=== PATIENT | female | born 1955 | race Caucasian/White ===

== ENCOUNTER 2024-05-09 09:08 | Outpatient (REF) | payer MEDICARE, SELFPAY ==
--- NOTE | ~2024-05-09 | MM_ITS ---
EXAMINATION: MM SCREENING DIGITAL BREAST TOMOSYNTHESIS, BILATERAL CLINICAL INFORMATION: Screening. Asymptomatic. COMPARISON: Mammography: This study is compared with prior exams dating back to 2020. TECHNIQUE: Digital breast tomosynthesis is performed in both the craniocaudal and mediolateral oblique views along with computer-aided detection (CAD). Synthesized 2D images are generated from the tomosynthesis. FINDINGS: There are scattered areas of fibroglandular density (ACR BI-RADS breast composition Category b). There are no significant masses, abnormal calcifications, or other abnormalities. MM/MM tomosynthesis screening BI IMPRESSION: No mammographic evidence of malignancy. Please note that this study is being dictated after issues from new reporting software migration were resolved. ASSESSMENT: BI-RADS BI-RADS 1 - Negative RECOMMENDATION: Routine annual mammography screening. 1 year F/U This examination should not preclude the clinical evaluation of a suspicious palpable abnormality. This patient's information was entered into a reminder system with a target due date for their next mammogram. Electronically signed by: Arely Forbes MD 06/09/2024 09:24 AM EDT
== END 2024-05-09 09:09 | disposition home or self-care (01) ==
LOC: HO.MAMMO 09:08
PROVIDERS: PCP Student in an Organized Health Care Education/Training Program; Visit Provider Student in an Organized Health Care Education/Training Program
DX: Z12.31 Encounter for screening mammogram for malignant neoplasm of breast (principal)
CPT/HCPCS: 77063; 77067

== ENCOUNTER → 2024-05-09 09:15 | Outpatient (BNV) | payer MEDICARE, SELFPAY | PROVIDERS: PCP Student in an Organized Health Care Education/Training Program; Visit Provider Radiology Diagnostic Radiology | DX: Z12.31 Encounter for screening mammogram for malignant neoplasm of breast (principal) | CPT/HCPCS: 77063; 77067 ==

== ENCOUNTER 2025-05-15 09:05 | Outpatient (REF) | payer MEDICARE, SELFPAY ==
--- NOTE | ~2025-05-15 | MM_ITS ---
EXAMINATION: MM SCREENING DIGITAL BREAST TOMOSYNTHESIS, BILATERAL CLINICAL INFORMATION: Screening. Asymptomatic. COMPARISON: Mammography: Comparison is made with available priors TECHNIQUE: Digital breast mammography with tomosynthesis is performed in both the craniocaudal and mediolateral oblique views along with computer-aided detection (CAD). FINDINGS: There are scattered areas of fibroglandular density (ACR BI-RADS breast composition Category b). There are no significant masses, abnormal calcifications, or other abnormalities. MM/MM tomosynthesis screening BI IMPRESSION: No mammographic evidence of malignancy. ASSESSMENT: BI-RADS BI-RADS 1 - Negative RECOMMENDATION: Routine annual mammography screening. 1 year F/U This examination should not preclude the clinical evaluation of a suspicious palpable abnormality. This patient's information was entered into a reminder system with a target due date for their next mammogram. Electronically signed by: Payton Goodman DO 05/19/2025 01:41 PM EDT
--- OUTSIDE RECORDS SUMMARY | 2025-05-15 09:16 | XMS_ITS | Clinical Summary ---
Author Organization [facility] Address [address] [facility] [address] [place] [id number] Phone Care Team Providers Care Db2 Developer Name Role Phone Susana Glover LEATHER SORTER Unavailable [phone] Sofya Mcgarry Primary Care Provider Allergies Active Allergy Reactions Criticality Noted Date Comments Aspirin Anaphylaxis,Hives High 01/30/2018 Codeine Sulfate Anaphylaxis,Hives High 01/30/2018 Propoxyphene N-Acetaminophen Anaphylaxis,Hives High 01/30/2018 Levofloxacin Other (See Comments) 01/30/2018 Pre-Syncope Morphine Sulfate Anaphylaxis,Hives High 01/30/2018 Nystatin Anaphylaxis,Hives High 01/30/2018 Other Anaphylaxis,Hives High 01/30/2018 Bees Penicillins Anaphylaxis,Hives High 01/30/2018 Oxycodone-Acetaminophen Hives,Nausea and /or Vomiting 01/30/2018 Sulfa (Sulfonamide Antibiotics) Anaphylaxis,Hives High 01/30/2018 Azithromycin Unknown 01/30/2018 Medications acetaminophen (TYLENOL) 500 MG tablet Take 1 tablet by mouth as needed. Active albuterol 90 mcg/actuation inhaler TAKE 2 PUFFS BY MOUTH EVERY 6 HOURS NEEDED FOR WHEEZE 8.5 Inhaler 0 Active metroNIDAZOLE (ROSADAN) 0.75 % gel APPLY TOPICALLY TWICE A DAY TO THE FACE 45 g 4 3 Active azelaic acid (AZELEX) 20 % creamIndicatio ns:Rosacea Apply topically 2 (two) times a day. After skin is thoroughly washed and patted dry, gently but thoroughly massage a thin film of azelaic acid cream into the affected area twice daily, in the morning and evening. 50 g 4 Active Additional Information Patient not taking.Reported on 03/03/2025 EPINEPHrine 0.3 mg/0.3 mL auto-injectorI ndications:Sci atica of right side Inject 0.3 mL (0.3 mg total) into the muscle once as needed for anaphylaxis. as directed Intramuscular PRN 1 each 3 5 Active Active Problems Problem Noted Date Diagnosed Date Encounter for annual wellnes s visit (AWV) in Medicare patient 03/03/2025 Assessment & Plan (03/03/2025 8:47 AM EDT): This is a 69 y.o. female who presents for a complete physical exam. Past medical history, surgical history, social history, family history and allergies reviewed and document in chart. -Blood pressure taken and reviewed. -General health screening appropriate for age reviewed -General nutrition recommendations reviewed: 5 servings of fruits and vegetables, adequate protein. -Exercise recommendations reviewed: 150 minutes of cardiovascular exercise weekly. At least two strength training sessions weekly for muscle mass and bone health. -Breast cancer screening discussed: Last mammogram: 05/2024. Result: BIRADS 1. Any abnormal hx: no. Due in fall 2024. -Colon cancer screening discussed:Last colonoscopy: Years ago. Last Cologuard 2022. Result: negative. Any abnormal hx: no. Due in 2025. -Cervical cancer screening discussed: Always normal paps. S/p KURT 20 years ago. No further screening. -Smoking cessation: NA- quit in 1979. -Lung Cancer Screening: NA -Abdominal Aortic Aneurysm: NA -Osteoporosis screening discussed: Has never had. Schedule for June 2025. -Prediabetes and Type 2 Diabetes Screenin.5% -Hyperlipidemia screening: Very high LDL, good HDL. -Cardiovascular disease prevention (statin): ASCVD score: 7.5% -STI screening: Declines. -One lifetime HIV and Hep C test: Negative. -IPV screen: NA -PHQ2: 0, GAD7: 0 -ADLS: No limitations -Immunizations reviewed: Due for RSV, COVID. Will consider. -Labs as ordered -Regular vision and dental exams recommended: UTD -Calcium with Vitamin D recommendations reviewed: 800 international units of vitamin D daily and 1200 mg elemental calcium in post menopausal women -Living will/MOLST/HCP: Paperwork provided. HCP is daughter Bailey. -Annual physical exam recommended Pure hypercholesterolemia 03/03/2025 Assessment & Plan (03/03/2025 9:06 AM EDT): Elevated ASCVD at 7.5%. Very high LDL. Will work on lifestyle changes and repeat in 6 months. 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 Trigger finger, right ring finger 03/19/2023 Overview (09/12/2024): Injected x 2 with only partial improvement. Uses marijuana cream that has made a big difference. Assessment & Plan (09/13/2023 1:39 PM EST): Trigger finger. Injected 02/2023 with only partial improvement and now sxs worse again. Repeat injection today. Discussed if no sustained improvement, next step probably should be referral to Hand Surgery. Procedure: Pt consent, sterile prep, spray anesthetic. 20 my Kenalog + 0.5 cc 1% xylocaine injected folexor tendon. Tolerated well. I had her take off her ring. Rest joint 24 hrs. Assessment & Plan (04/26/2023 10:08 AM EDT): Significantly improved but not completely resolved since 02/2023 injection; a bit premature to repeat injection today but can do so in future if needed. Additionally option for custom splinting discussed; patient declined today but is aware this tx is sometimes effective as well. Assessment & Plan (03/19/2023 12:45 PM EDT): Steroid injection today as detailed in procedure note Rosacea 12/12/2022 Overview (09/12/2024): Uses metrogel without much effect. Will try azelaic acid. Mild intermittent asthma without complication Overview (09/12/2024): Triggered by allergies. Uses albuterol inhaler very rarely. Sciatica of right side 01/30/2018 Overview (03/03/2025): Original injury shoveling snow. Chiropractor made worse. Completed PT. MRI showed 3 herniated discs. Has never had injections. Now intermittent flares though a constant dull pain otherwise. Assessment & Plan (03/03/2025 8:21 AM EDT): Not interested in injections or surgery at this time. Seasonal allergies 01/30/2018 Overview (09/12/2024): Uses benadryl and Zyrtec as needed. Resolved Problems Problem Noted Date Diagnosed Date Resolved Date Hand pain, right 09/13/2023 09/12/2024 Assessment & Plan (09/13/2023 1:42 PM EST): Today subtle swelling, possible synovitis espec at 3d MCP joiint. Hx of elevated CCP on one occasion, but neg RF and CCP on repeat 6 mo ago. Will obtain x ray to serve as :baseline. Discussed if increasing sxs will need re-evaluation, repeat labs. Muscle spasm 04/26/2023 09/12/2024 Assessment & Plan (04/26/2023 10:09 AM EDT): Bl hands > feet; baseline Mg with next routine lab draw. Advised trial of tonic water with quinine for symptomatic benefit. Further mgmt deferred to PCP given absence of underlying inflammatory arthritis. Positive anti-CCP test 03/19/202309/12 Overview (03/19/2023): Labs 2018 RF neg anti-CCP 23.8 Assessment & Plan (04/26/2023 10:07 AM EDT): Repeat anti-CCP negative (02/2023); no specific objective evidence of rheumatoid arthritis Assessment & Plan (03/19/2023 12:47 PM EDT): No clear synovitis or joint effusion amenable to diagnostic arthrocentesis on exam today. Noted absence of profound AM stiffness. Unclear clinical significance of historic borderline elevation of anti-CCP but will repeat rheumatoid arthritis serologies and obtain updated routine labs / inflammatory markers. Unable to confirm underlying inflammatory arthritis based on data available today; will follow response to trigger finger injection given today closely and may proceed with dedicated plain films pending lab findings. High clinical likelihood of non-inflammatory component / L > R knee OA. Patient declined rx for anti-inflammatory today. Arthralgia of both elbows 01/30/2018 Arthritis of carpometacarpal (CMC) joint of right thumb 01/30/2018 09/12/2024 Assessment & Plan (04/26/2023 10:08 AM EDT): Can be tx'd with intra-articular steroid injection in future if needed Low back pain 01/30/2018 09/12/2024 Disorder of skin or subcutaneous tissue 01/30/2018 09/12/2024 Vertigo 01/30/2018 09/12/2024 Encounters Date Type Department Care Team Description 03/03/2025 8:15 AM EDT Office Visit [facility] [address] [place] [address] Sofya Mcgarry Encounter for annual wellness visit (AWV) in Medicare patient; Sciatica of right side; Pure hypercholesterolemia ; History of anaphylaxis 02/24/2025 8:17 AM EDT - 02/24/2025 11:59 PM EDT Hospital Encounter [facility] Laboratory [address] [facility] [place] [address] Sofya Mcgarry Discharge Disposition: Home or Self Care from Last 3 Months Immunizations Immunization Administration Dates Next Due COVID-19 (Pre-07/16) Pfizer Vaccine, mRNA, PF 10/26/2020,10/05/2020 INFLUENZA, SPLIT VIRUS, TRIVALENT PF 07/15/2024 INFLUENZA, SPLIT VIRUS, TRIV ALENT W/ PRESERVATIVE IM 06/13/2021,07/12/2016,07/07/2015,2009 Influenza High-Dose Trivalen t Preservative Free IM 06/17/2019 Influenza Quadrivalent Adjuv anted Preservative Free IM 06/15/2023 Influenza Quadrivalent MDCK Preservative Free IM 07/03/2017 Influenza Quadrivalent Prese rvative Free IM 06/28/2022,06/26/2018 Influenza trivalent preserva tive free intradermal 08/01/2013 Influenza, Unspecified Formulation 07/03/2017 Pneumococcal conjugate PCV13 10/31/2017 Pneumococcal conjugate PCV20 09/12/2024 Td (adult),2 Lf Tetanus Toxo id, PF, Adsorbed 05/26/2020 Tdap 10/03/2006 Zoster live 07/03/2017 Zoster recombinant 05/26/2020,07/25/2019 Family History Medical History Relation Comments Elevated PSA Brother Tinnitus Brother Vertigo Brother No Known Problems Daughter 1 Fibromyalgia Daughter 2 Lung cancer Father Smoker Rheumatoid arthritis Maternal Aunt Breast cancer Mother Carotid stenosis Mother Stroke Mother x3- first in 40s Allergies Sister Most medications Clotting disorder Sister cardiac arrest as a result Hypertension Sister Obesity Sister No Known Problems Son 1 No Known Problems Son 2 Relation Status Comments Brother Alive Daughter 1 Alive Daughter 2 Alive Father Maternal Aunt Alive Maternal Grandfather Maternal Grandmother Mother (Age 91) Paternal Grandfather Paternal Grandmother Sister Alive Son 1 Alive Son 2 Alive Social History Tobacco Use Types Packs/Day Years Used Date Smoking Tobacco: Former Cigarettes 3 11 0 06/04/1969 - 06/03/1980 Smokeless Tobacco: Never Tobacco Cessation:Counseling Given: Not Answered Alcohol Use Standard Drinks/Week Comments No 0 (1 standard drink = 0.6 oz pur e alcohol) Child or Family Care Answer Date Record ed Do you have problems with on e of the following making it difficult for you to work, study, or receive health care? No 03/03/2025 Education Answer Date Recorded Are you interested in more education? Not on bekah e 12/12/2024 Are you concerned about learning? Not on file 12/12/2024 No 12/12/2024 No 12/12/2024 Food Answer Date Recorded Within the past 6 months we worried whether our food would run out before we got money to buy more. Never True 03/03/2025 Within the past 6 months the food we bought just didn't last and we didn't have enough money to get more. Never True Residential Stability Answer Date Recor ded What is your housing situation today? I have oj goldsmith 03/03/2025 How many times have you move d in the past 12 months? Zero (I did not move) 03/03/2025 Paying for Meds Answer Date Recorded Do you have trouble paying for medicines? No 03/03/2025 Paying Utility Bills Answer Date Record ed Do you have trouble paying your heating or elect ricity bill? No 03/03/2025 Transportation Answer Date Recorded Has the lack of transportati on kept you from medical appointments or from getting medications? No 03/03/2025 Unemployment Answer Date Recorded Are you currently unemployed or working on a part-time or temporary basis, and looking for work? No 12/12/2022 Digital Access Answer Date Recorded No 03/03/2025 Yes 03/03/2025 Do you have reliable internet access at home? Ye s 03/03/2025 Do you have a device (e.g., phone, tablet, computer) with a working camera? Yes 03/03/2025 Intimate Partner Violence Answer Date R ecorded Denied Basic Needs Not on file 09/10/2024 In the past 12 months have y ou been in a relationship with a person who hurts, threatens, or tries to control you? No 09/10/2024 Worried food would run out Not on file 09/10 In the past 12 months have y ou been in a relationship with a person who hurts, threatens, or tries to control you? No 09/10/2024 Comments No Sex and Gender Information Value Date Recorded Sex Assigned at Female 08/08/2020 4:58 PM EST Legal Sex Female 9:57 PM EDT Gender Identity Not on file Sexual Orientation Choose not to disclose 2019 4:58 PM EST Last Filed Vital Signs Vital Sign Reading Time Taken Comments Blood Pressure 104/68 03/03/2025 7:48 AM EDT Pulse 68 03/03/2025 7:48 AM EDT Temperature 36.1 C (97 F) 03/03/2025 7:48 AM EDT Respiratory Rate 16 04/26/2023 9:40 AM EDT Oxygen Saturation 97% 03/03/2025 7:48 AM EDT Inhaled Oxygen Concentration - - Weight 80.3 kg (177 lb) 03/03/2025 7:48 AM EDT Height 165.5 cm (5' 5.16 ) 03/03/2025 7:48 AM ED T Body Mass Index 29.31 03/03/2025 7:48 AM EDT Plan of Treatment Upcoming Encounters Date Type Department Care Team (Late st Contact Info) Description 07/22/2025 9:45 AM EDT Appointment [facility], Bone Density [facility] [address] [place] [address] Sofya Mcgarry [address] [place] [address], [address] [place] [address] [email or web address] 09/03/2025 9:30 AM EST Office Visit [address] [place] [address] Sofya Mcgarry [address] [place] [address], [address] [place] [address] [email or web address] 04/01/2026 8:15 AM EDT Office Visit [address] [place] [address] Sofya Mcgarry [address] [place] [address], [address] [place] [id number] [email or web address] Health Maintenance Due Date Last Done Comments FIT TEST 1998 FOBT 1998 SIGMOIDOSCOPY 1998 VIRTUAL COLONOSCOPY 1998 RSV VACCINE (1 - Risk 60-74 years 1-dose series) 2013 OSTEOPOROSIS SCREENING INITIAL (ONE-TIME) 2018 COLONOSCOPY 10/14/2020 10/14/2010 COVID-19 VACCINE ( season) 2025 07/15/2024, 09/11/2023, 09/13/2022, Additional history exists COLOGUARD 12/27/2025 12/27/2022 COLORECTAL CANCER SCREENING 12/27/2025 DEPRESSION SCREENING 03/03/2026 03/03/2025 MAMMOGRAM 05/09/2026 05/09/2024, 0803/2023, 04/26/2022, Additional history exists LIPID PANEL 02/24/2030 02/24/2025, 06/16/2020 Adult Td,Tdap Booster 05/26/2030 05/26/2020, 007 ZOSTER VACCINES Completed 05/26/2020, 1109/2018, 07/03/2017 HEPATITIS C SCREENING Completed 06/16/2020 PNEUMOCOCCAL VACCINES (50+ years) Completed 09/12/2024, 10/31/2017 SMOKING STATUS SCREENING (Once After 26 Yrs) Completed 03/03/2025 HEPATITIS A VACCINES Aged Out No long er eligible based on patient's age to complete this topic HIB VACCINES Aged Out No longer eligi ble based on patient's age to complete this topic MENINGOCOCCAL VACCINES (ACWY) Aged Out No longer eligible based on patient's age to complete this topic MENINGOCOCCAL VACCINES (B) Aged Out N o longer eligible based on patient's age to complete this topic Medical Devices Not on file Procedures Procedure Name Priority Date/Time Associated Diagnosis Comments LIPID PANEL Routine 02/24/2025 8:17 AM EDT Pure hypercholesterolemia HEMOGLOBIN A1C Routine 02/24/2025 8:17 AM EDT Abnormal fasting glucose COMPREHENSIVE METABOLIC PANEL Routine 02/24/2025 8:17 AM EDT Pure hypercholesterolemia MAMMOGRAPHY Routine 05/09/2024 11:17 AM EDT HEPATITIS C ANTIBODY, QUALITATIVE Routine 06/16/2020 9:05 AM EDT Routine general medical examination at a health care facility COLONOSCOPY FOR RESULT ENTRY ONLY Routine 10/14/2010 from Last 3 Months or Most Recently Relevant to Health Maintenance Results * (ABNORMAL) Comprehensive metabolic panel (02/24/2025 8:17 AM EDT) [facility] Signature SODIUM 138 133 - 146 mmol/L [facility] POTASSIUM 4.3 3.3 - 5.1 mmol/L [facility] CHLORIDE 102 96 - 108 mmol/L [facility] CO2 27 21 - 35 mmol/L [facility] BUN 18 6 - 19 mg/dL [facility] CREATININE 0.80 0.5 - 1.5 mg/dL [facility] GLUCOSE 102(H) 70 - 99 mg/dL [facility] ALBUMIN 4.3 3.9 - 4.8 g/dL [facility] TOTAL PROTEIN 7.1 6.5 - 8.0 g/dL [facility] CALCIUM 9.4 8.4 - 10.3 mg/dL [facility] ALKALINE PHOSPHATASE 68 39 - 117 U/L [facility] TOTAL BILIRUBIN 0.4 0.0 - 1.2 mg/dL [facility] AST 21 0 - 37 U/L [facility] ALT 20 0 - 40 U/L [facility] GLOBULIN 2.8 1 - 4.8 g/dL [facility] EGFR 79 >59 mL/min/1.7 3m2 [facility] Comment:Estimated glomerular filtration rate calculated using the CKD-EPI refit equation. ANION GAP 13 10 - 20 mmol/L [facility] Blood 02/24/2025 8:17 AM EDT 02/24/2025 8:20 AM EDT [facility] LAB BLOOD ORDERABLES Final Result [address] [address] * Hemoglobin A1c (02/24/2025 8:17 AM EDT) HEMOGLOBIN A1C 5.5 4.3 - 5.8 % [facility] Blood 02/24/2025 8:17 AM EDT 02/24/2025 8:20 AM EDT [facility] BLOOD ORDERABLES Final Result [address] [address] * (ABNORMAL) Lipid panel (02/24/2025 8:17 AM EDT) HDL 69 mg/dL [facility] Comment: Interpretation <40 mg/dL: Low HDL cholesterol (major risk factor for CHD) Greater than or equal to 60 mg/dL: High HDL cholesterol ( negative risk factor for CHD) HDL - cholesterol is affected by a number of factors, e.g. smoking, excerise, hormones, sex and age. CHOLESTEROL 281(H) 0 - 240 mg/dL [facility] TRIGLYCERIDES 116 30 - 160 mg/dL [facility] LDL 189(H) 50 - 129 mg/dL [facility] Comment: LDL levels in terms of risk for coronary heart disease: <100 mg/dL: Optimal 100-129 mg/dL: Near or above optimal 130-159 mg/dL: Borderline high 160-189 mg/dL: High >190 mg/dL: Very High CARDIAC RISK RATIO 4.1 3.3 - 4.4 [facility] Blood 02/24/2025 8:17 AM EDT 02/24/2025 8:20 AM EDT us Sofya Mcgarry LAB BLOOD ORDERABLES Final Result Performing Organization Address City/[facility]/ZIP Co de Phone Number [address] [address] * HM MAMMOGRAPHY FOR RESULT ENTRY ONLY (05/09/2024 11:17 AM EDT) Historical Provider HEALTH MAINTENANCE Edited Result - Final * Hepatitis C antibody, qualitative (06/16/2020 9:05 AM EDT) HCV NON-REACTIV E NON-REACTI VE [facility] Blood 06/16/2020 9:05 AM EDT 06/16/2020 9:13 AM EDT Susana Glover NP LAB BLOOD ORDERABLES Final Resu lt [address] [address] * COLONOSCOPY FOR RESULT ENTRY ONLY (10/14/2010) Colonoscopy 10 yr recall us Historical Provider MD HEALTH MAINTENANCE Final Result from Last 3 Months or Most Recently Relevant to Health Maintenance Insurance IEV MEDEX SUPPLEMENT MEDICARE PART A & B [employer] MED[employer] SUPPLEMENT MEDICARE PART A & B [employer] MED[employer] SUPPLEMENT MEDICARE PART A & B IEV MEDEX SUPPLEMENT MEDICARE PART A & B [facility] MEDEX SUPPLEMENT MEDICARE PART A & B [employer] MEDEX SUPPLEMENT MEDICARE PART A & B Care Teams Db2 Developer Relationship Specialty Start Date End Date Sofya Mcgarry: [phone] [address] [place] [address], [address] [place] [address] PCP - General Family Medicine 11/29/23 Susana Glover NP [email or web address] Historical LMR Provider 07/11/17 Additional Source Comments The information contained in this document represents components of the legal health record. It is not the complete legal health record.[facility]
== END 2025-05-15 09:06 | disposition home or self-care (01) ==
LOC: HO.MAMMO 09:05
PROVIDERS: Visit Provider Student in an Organized Health Care Education/Training Program
DX: Z12.31 Encounter for screening mammogram for malignant neoplasm of breast (principal)
CPT/HCPCS: 77063; 77067

== ENCOUNTER → 2025-05-15 09:15 | Outpatient (BNV) | payer MEDICARE, SELFPAY | PROVIDERS: Visit Provider Internal Medicine | DX: Z12.31 Encounter for screening mammogram for malignant neoplasm of breast (principal) | CPT/HCPCS: 77063; 77067 ==